=== PATIENT | female | born 1955 | race Caucasian/White ===

== ENCOUNTER 2022-02-21 02:06 | Emergency (ER) | payer OTHER, BC ==
[~2022-02-21] VITALS: Ht 154.9 cm; Wt 71.7 kg
--- NOTE | 2022-02-21 02:33 | NUR ---
Patient triaged and placed in room 6. VSS and patient appears in no acute distress at this time. Accompanied by . MD Emmanuel notified of need for MSE. Report given to ASHLEY Ross.
--- NOTE | 2022-02-21 02:40 | NUR ---
Patient presents to ED from home with c/o bilateral lower quadrant pain x1 week. Patient reports intermitten pain level 6/10 at this time. Patient states "My lower stomach has been hurting on and off for about a week. It goes away and comes back, but yesterday around 8:30pm my stomach started hurting really bad and it hasnt gone away." Patient denies N/V/D at this time. Patient A/Ox4, GCS 15, VSS, ambulatory, resp even and unlabored. Patient's at bedside. Patient connected to monitor. Nad noted at this time.
--- NOTE | 2022-02-21 02:45 | NUR ---
Lab at bedside.
[2022-02-21 03:00] LABS: BASOPHILS # (AUTO) 0.1 K/uL (0.0-0.2); BASOPHILS % (AUTO) 0.4 % (0.0-2.0); EOSINOPHILS # (AUTO) 0.1 K/uL (0.0-0.4); HEMATOCRIT 37.4 % (36-48); HEMOGLOBIN 12.6 g/dL (12.0-16.0); LYMPHOCYTES % (AUTO) 7.3 % (20.5-51.5); MEAN CORPUSCULAR HEMOGLOBIN 30 pg (27-31); MEAN CORPUSCULAR HGB CONC 34 % (32-36); MEAN CORPUSCULAR VOLUME 88 fL (79.0-98.0); MONOCYTES # (AUTO) 1.4 K/uL (0.0-1.0); MONOCYTES % (AUTO) 10.3 % (1.7-9.3); NEUTROPHILS # (AUTO) 11.2 K/uL (1.8-7.7); PLATELET COUNT (AUTO) 273 K/uL (130-430); RED BLOOD CELL COUNT(AUTO) 4.24 MIL/uL (4.2-6.2); RED CELL DISTRIBUTION WIDTH 13.1 % (9.0-15.0); WHITE BLOOD COUNT (AUTO) 13.8 K/uL (4.8-10.8)
[2022-02-21 03:11] LABS: CALCIUM 8.9 mg/dL (8.4-11.0); CREATININE 0.57 mg/dL (0.55-1.30)
[2022-02-21 03:18] LABS: ALBUMIN 3.6 g/dL (3.4-4.8); TOTAL BILIRUBIN 0.3 mg/dL (0.0-1.0)
--- NOTE | 2022-02-21 04:30 | NUR ---
Patient sleeping in bed with safety precautions in place. Patient's at bedside. Nad noted at this time.
--- NOTE | 2022-02-21 05:16 | NUR ---
ALAN Brown at bedside.
[2022-02-21] MEDS ORDERED: MORPHINE 4 MG INJ. 4 MG/ML VIAL IVP ONE (05:30)
[2022-02-21] MEDS ORDERED: PROCHLORPERAZINE EDISYLATE 10 MG/2 ML VIAL IVP ONE (05:30)
[2022-02-21] MEDS ORDERED: NACL 0.9% 1,000 ML IV ONE (05:30)
--- NOTE | 2022-02-21 06:17 | NUR ---
Patient taken to xrays via gurney and accompanied by radiology.
[2022-02-21 06:26] LABS: GLUCOSE,URINE NEGATIVE (NEGATIVE); KETONES,URINE NEGATIVE (NEGATIVE)
[2022-02-21 06:27] LABS: BILIRUBIN,URINE NEGATIVE (NEGATIVE); BLOOD, URINE NEGATIVE (NEGATIVE); LEUKOCYTE ESTERASE ,URINE NEGATIVE (NEGATIVE); NITRITE, URINE NEGATIVE (NEGATIVE)
[2022-02-21 06:28] LABS: CLARITY/URINE CLEAR (CLEAR); COLOR,URINE YELLOW (YELLOW); PROTEIN URINE NEGATIVE (NEGATIVE)
--- NOTE | 2022-02-21 07:42 | NUR ---
Report given to ASHLEY Vences to assume care of patient at this time.
[2022-02-21] MEDS ORDERED: ACET1TAB93 PO (08:06)
[2022-02-21] MEDS ORDERED: AUG875 PO (08:06)
[2022-02-21] MEDS ORDERED: IBUP-1969 PO (08:06)
[2022-02-21] MEDS ORDERED: ONDA-8 TL (08:06)
[2022-02-21] MEDS ORDERED: AMOXICILLIN/POTASSIUM CLAV 875 MG TABLET PO ONE (08:15)
--- NOTE | 2022-02-21 08:29 | NUR ---
[facility] ORDERED D/C INSTRUCTIONS FOR PT. PT A&OX4, NO DISTRESS NOTED. PT WAS GIVEN ACI AND AMBULATED OUT OF THE ER WITH FAMILY.
[2022-02-21 08:31] VITALS: BP_SYST 142
== END 2022-02-21 08:29 | disposition home or self-care (01) ==
LOC: SED 02:06
DX: R10.30 Lower abdominal pain, unspecified (principal); Z79.899 Other long term (current) drug therapy
CPT/HCPCS: 99284; 74176; 96374; 96361; 96375; 80053; 85025; 36415; 76376; 81003; J0780; J2270; J7030

== ENCOUNTER 2023-07-31 09:36 | Emergency (ER) | payer OTHER, BC ==
[~2023-07-31] VITALS: Ht 154.9 cm; Wt 71.2 kg
[~2023-07-31 09:36] MED LIST: AUG875 PO; IBUP-1969 PO; ONDA-8 TL
[2023-07-31 10:00] VITALS: BP_SYST 137; PULSE 110; RESP 16; TEMP 98.2; O2SAT 97
[2023-07-31] MEDS ORDERED: MELA10TA2 PO (10:01)
[2023-07-31 10:16] VITALS: BP_SYST 137; PULSE 110; RESP 16; TEMP 98.2; O2SAT 97
== END 2023-07-31 10:17 | disposition home or self-care (01) ==
LOC: SED 09:36
DX: G47.00 Insomnia, unspecified (principal); F41.9 Anxiety disorder, unspecified; F32.9 Major depressive disorder, single episode, unspecified
CPT/HCPCS: 99282

== ENCOUNTER 2023-09-16 05:44 | Inpatient (IN) | payer OTHER, BC ==
[2023-09-14 12:39] LABS: BASOPHILS % (AUTO) 0.7 % (0.0-2.0); EOSINOPHILS # (AUTO) 0.3 K/uL (0.0-0.4); EOSINOPHILS % (AUTO) 4.1 % (0.0-4.0); HEMATOCRIT 38.5 % (36-48); HEMOGLOBIN 13.1 g/dL (12.0-16.0); LYMPHOCYTES # (AUTO) 1.9 K/uL (1.0-5.5); LYMPHOCYTES % (AUTO) 29.8 % (20.5-51.5); MEAN CORPUSCULAR HEMOGLOBIN 31 pg (27-31); MEAN CORPUSCULAR HGB CONC 34 % (32-36); MEAN CORPUSCULAR VOLUME 90 fL (79.0-98.0); MONOCYTES # (AUTO) 0.8 K/uL (0.0-1.0); MONOCYTES % (AUTO) 12.2 % (1.7-9.3); NEUTROPHILS # (AUTO) 3.3 K/uL (1.8-7.7); NEUTROPHILS % (AUTO) 53.2 % (40.0-70.0); PLATELET COUNT (AUTO) 302 K/uL (130-430); RED BLOOD CELL COUNT(AUTO) 4.29 MIL/uL (4.2-6.2); RED CELL DISTRIBUTION WIDTH 13.4 % (9.0-15.0); WHITE BLOOD COUNT (AUTO) 6.3 K/uL (4.8-10.8)
[2023-09-14 13:02] LABS: INR 0.9 (0.8-1.2); PROTHROMBIN TIME 9.8 SECS (9.5-12.5)
[2023-09-14 13:05] LABS: ALBUMIN 3.5 g/dL (3.4-4.8); CALCIUM 8.9 mg/dL (8.4-11.0); CREATININE 0.59 mg/dL (0.55-1.30); POTASSIUM 4.8 mmol/L (3.5-5.1); TOTAL BILIRUBIN 0.3 mg/dL (0.0-1.0)
[2023-09-14 13:08] LABS: HEMOGLOBIN A1C 5.9 % (<5.7)
[~2023-09-16] VITALS: Ht 154.9 cm; Wt 68.0 kg
[~2023-09-16 05:44] MED LIST changes: +MELA10TA2 PO
[2023-09-16] MEDS: ACETAMINOPHEN 500 MG TABLET ONE (06:18)
[2023-09-16] MEDS: CELECOXIB 100 MG CAPSULE ONE (06:18)
[2023-09-16] MEDS: oxyCODONE HCL 10 MG TAB.ER.12H PO ONE ×2 (06:22→07:15)
[2023-09-16] MEDS: GABAPENTIN 300 MG CAPSULE ONE (06:22)
[2023-09-16] MEDS: SCOPOLAMINE HYDROBROMIDE 1 MG PATCH .72 H (TRANSDERM-SCOP) TD ONE ×2 (06:24→06:26)
[2023-09-16] MEDS: CELECOXIB 100 MG CAPSULE PO ONE (06:26)
[2023-09-16] MEDS: GABAPENTIN 300 MG CAPSULE PO ONE (06:26)
[2023-09-16] MEDS: ACETAMINOPHEN 500 MG TABLET PO ONE (06:26)
[2023-09-16] MEDS: CEFAZOLIN SOD 2 GM in D5W 50 ML IV ONE (06:30)
[2023-09-16] MEDS ORDERED: DEXAMETHASONE SOD PHOSPHATE 4 MG/ML VIAL ONE (07:05)
[2023-09-16] MEDS ORDERED: DIPHENHYDRAMINE HCL 25 MG CAPSULE PO PRN (07:15)
[2023-09-16] MEDS ORDERED: NALOXONE HCL 0.4 MG/ML AMP (NARCAN) IVP PRN ×3 (07:15)
[2023-09-16] MEDS ORDERED: METOCLOPRAMIDE HCL 10 MG/2 ML VIAL IVP PRN (07:15)
[2023-09-16] MEDS ORDERED: BISACODYL 10 MG/SUPPOSITORY RC PRN (07:15)
[2023-09-16] MEDS ORDERED: LACTULOSE 20 GM/30 ML UDC PO PRN (07:15)
[2023-09-16] MEDS ORDERED: ONDANSETRON HCL 4 MG/2 ML VIAL IVP PRN ×2 (08:15→11:45)
[2023-09-16] MEDS ORDERED: HYDROmorphone 2 MG/ML VIAL IVP PRN (08:15)
[2023-09-16] MEDS: LR 1,000 ML IV SCH (08:15)
[2023-09-16] MEDS ORDERED: KETOROLAC TROMETHAMINE 30 MG VIAL IVP PRN (08:15)
[2023-09-16] MEDS ORDERED: HYDROmorphone 1 MG/ML INJ. CARTRIDGE IVP PRN ×3 (08:15→11:00)
[2023-09-16] MEDS: ACETAMINOPHEN I.V. 1000 MG 100 ML IV ONE (08:34)
[2023-09-16] MEDS ORDERED: traMADol HCL HCL 50 MG TABLET (ULTRAM) PO PRN (11:00)
[2023-09-16] MEDS ORDERED: oxyCODONE HCL 5 MG TABLET PO PRN ×2 (11:00)
[2023-09-16] MEDS ORDERED: LORATADINE 10 MG TABLET PO PRN (11:00)
[2023-09-16] MEDS: HYDROmorphone 1 MG/ML INJ. CARTRIDGE ONE (11:14)
[2023-09-16] MEDS: HYDROmorphone 1 MG/ML INJ. CARTRIDGE IVP PRN (11:15)
[2023-09-16] MEDS: ACETAMINOPHEN 500 MG TABLET PO SCH (14:00)
[2023-09-16] MEDS: KETOROLAC TROMETHAMINE 10 MG TABLET (TORADOL) PO SCH (14:00)
[2023-09-16] MEDS ORDERED: ESCI20TA PO (14:12)
[2023-09-16] MEDS ORDERED: LAM25 PO (14:12)
[2023-09-16] MEDS ORDERED: VENL37.58 PO (14:12)
[2023-09-16] MEDS ORDERED: BREX1TAB PO (14:12)
[2023-09-16] MEDS ORDERED: MIRT45TA83 PO (14:12)
[2023-09-16 16:07] VITALS: BP_SYST 119; PULSE 75; RESP 18; TEMP 97; O2SAT 93
[2023-09-16 16:10] VITALS: BP_SYST 119; PULSE 75; RESP 18; TEMP 97
[2023-09-16 16:17] VITALS: O2SAT 93
[2023-09-16] MEDS: ceFAZolin SODIUM 2 GM in D5W 50 ML IV SCH (17:08)
[2023-09-16 19:33] VITALS: O2SAT 97
[2023-09-16 20:00] VITALS: BP_SYST 115; PULSE 101; RESP 18; TEMP 97.2; O2SAT 97
[2023-09-16] MEDS: SENNOSIDES/DOCUSATE SODIUM 1 TAB TABLET(SENOKOT-S) PO SCH (21:23)
[2023-09-17 01:40] VITALS: BP_SYST 125; PULSE 96; RESP 17; TEMP 98.7; O2SAT 97
[2023-09-17 05:59] LABS: BASOPHILS % (AUTO) 0.2 % (0.0-2.0); EOSINOPHILS % (AUTO) 0.1 % (0.0-4.0); HEMATOCRIT 28.7 % (36-48); HEMOGLOBIN 9.8 g/dL (12.0-16.0); LYMPHOCYTES # (AUTO) 1.4 K/uL (1.0-5.5); LYMPHOCYTES % (AUTO) 13.2 % (20.5-51.5); MEAN CORPUSCULAR HEMOGLOBIN 31 pg (27-31); MEAN CORPUSCULAR HGB CONC 34 % (32-36); MEAN CORPUSCULAR VOLUME 90 fL (79.0-98.0); MONOCYTES # (AUTO) 1.7 K/uL (0.0-1.0); MONOCYTES % (AUTO) 15.7 % (1.7-9.3); NEUTROPHILS # (AUTO) 7.6 K/uL (1.8-7.7); NEUTROPHILS % (AUTO) 70.8 % (40.0-70.0); PLATELET COUNT (AUTO) 258 K/uL (130-430); RED BLOOD CELL COUNT(AUTO) 3.19 MIL/uL (4.2-6.2); RED CELL DISTRIBUTION WIDTH 13.7 % (9.0-15.0); WHITE BLOOD COUNT (AUTO) 10.7 K/uL (4.8-10.8)
[2023-09-17 06:42] LABS: ALBUMIN 2.8 g/dL (3.4-4.8); CREATININE 0.62 mg/dL (0.55-1.30); POTASSIUM 4.1 mmol/L (3.5-5.1); TOTAL BILIRUBIN 0.4 mg/dL (0.0-1.0); TOTAL PROTEIN, SERUM 5.7 g/dL (6.4-8.3)
[2023-09-17 08:00] VITALS: O2SAT 99
[2023-09-17 08:12] VITALS: BP_SYST 129; PULSE 93; RESP 16; TEMP 97.4; O2SAT 99
[2023-09-17] MEDS: ASPIRIN 81 MG TAB.CHEW PO SCH (09:11)
[2023-09-17] MEDS: CELECOXIB 200 MG CAPSULE PO SCH (10:27)
[2023-09-17 10:34] VITALS: BP_SYST 138; PULSE 100; RESP 16; TEMP 98.9; O2SAT 99
[2023-09-17 11:04] VITALS: BP_SYST 138; PULSE 100; RESP 15; TEMP 98.1; O2SAT 99
== END 2023-09-17 12:15 | disposition home or self-care (01) | DRG 470 ==
LOC: SMU 05:44
PROVIDERS: ADMIT Student in an Organized Health Care Education/Training Program; ATTEND Student in an Organized Health Care Education/Training Program
PROC: 0SRB0JZ Replacement of Left Hip Joint with Synthetic Substitute, Open Approach (ICD-10-PCS; principal; 2023-09-16 07:19)
DX: M16.12 Unilateral primary osteoarthritis, left hip (principal); Z79.899 Other long term (current) drug therapy
CPT/HCPCS: 36415; 71046; 72170-TC; 76001; 80053; 82948; 83037; 85025; 85610; 85730; 87081; 88304; 88311; 96379; 97110-GP; 97116-GP; 97530-GP; A4649; C1713; C1769; C1776; J0131; J0690; J1100; J1170; J1885; J2405; J2704; J2710; J2765; J3010; J3370; J3465; J3490; J7060; J7120